=== PATIENT | male | born 1955 | race Caucasian/White ===

== ENCOUNTER → 2020-12-12 11:32 | Outpatient (BNVA) | payer MEDICARE, OTHER, SELFPAY | PROVIDERS: Family Provider Family Medicine; PCP Family Medicine; Visit Provider Orthopaedic Surgery | DX: Z01.812 Encounter for preprocedural laboratory examination (principal); Z20.822 Contact with and (suspected) exposure to COVID-19 | CPT/HCPCS: 87635 ==

== ENCOUNTER 2020-12-18 09:19 | Day surgery (SDC) | payer MEDICARE, OTHER, SELFPAY ==
[2020-12-17 13:52] VITALS: BMI 21.4
[2020-12-18] VITALS (9 sets, daily range): BP systolic 95–154; BP diastolic 69–85; PULSE 54–88; RESP 12–20; TEMP 36.1–36.9; O2SAT 96–100
[2020-12-18] MEDS: acetaminophen 500 mg Tablet 1000 MG PO (09:45)
[2020-12-18] MEDS: sodium chloride 0.9% 1,000 ML 30 ML IV (09:46)
[2020-12-18] MEDS: midazolam 1 mg/mL INJ 2 mL 2 MG IVP (10:09)
--- NOTE | 2020-12-18 10:14 | ANES.PREANE2 ---
Pre-Anesthetic Assessment Pre-Anesthetic Assessment: Height/Weight: Height 1.75 m Weight 65.771 kg Temp Pulse Resp BP Pulse Ox 98 F 54 L 16 95/73 96 12/18/20 09:35 12/18/20 09:35 12/18/20 09:35 12/18/20 09:35 12/18/20 09:35 Preop Diagnosis: Rotator cuff tear Left shoulder Proposed Procedure: Operation Date: 12/18/20 11:20 Proposed Procedures p Shoulder Arthroscopy 89715 M75.102(Left) - Bradly Lyons MD s Rotator Cuff Repair(Not Applicable) - Bradly Lyons MD Familial anesthetic complications: none Was Beta Patrizia taken within 24 hours: N/A Was Clonidine taken within 24 hours: N/A Last intake: Intake Last Liquid Date 12/17/20 Last Liquid Time 22:00 Last Solid Date 12/17/20 Last Solid Time 20:00 Social: Social History: No alcohol and No tobacco Exam: Pre-Anes Outpt Exam: alert, oriented x 3, clear to auscultation bilaterally and regular rate & rhythm Airway: Cervical ROM: WNL MP: 2 Dentition: Full Neuropsych: Neuropsych: Anxiety Anesthetic Plan: ASA status: 1 Anesthesia: General and Regional (specify below) Risk of > 500 ml blood loss (7ml/kg in children): No Meds/Allergies Current Medications: Current Medications Generic Name Dose Route Start Last Admin Trade Name Freq PRN Reason Stop Dose Admin Sodium Chloride 1,000 mls @ 30 ml s/hr 12/18/20 09:30 12/18/20 09:46 Sodium Chloride 0.9% IV 12/19/20 09:29 30 mls/hr .Q24H ONEYDA Administration PFSH Anesthesia PFSH: Social History (Updated 12/05/20 @ 09:14 by Beverly Rueda LPN) Smoking and tobacco status: current some day smoker Alcohol intake: never Data Anesthesia Cardiac Studies: No Data to Display
--- NOTE | 2020-12-18 10:14 | ANES.PROC ---
Anesthesia Procedures Procedure/Date: 12/18/20 Nerve Block ^: Nerve Block 1: Main Anesthesia: general anesthesia Time Out Performed: Yes Consent: requested by attending/covering physician, from patient, from other, patient agrees to proceed and emergency procedure Nerve block location: interscalene (L) Anesthesia monitors applied: pulse oximetry, EKG, BP cuff and oxygen Nerve block position: semi sitting Anesthetic Used: ropivicaine 0.5% and with decadron (4 mg) Amount of anesthesia used (mL): 20 Ultrasound used to: recognize landmarks, visualize and ID brachial plexus and visualize and ID interscalene groove Nerve Stimulator Used?: No Interscalene/Femoral BLK: 2 stimuplex 22 g needle used for position and inplane approach, visualize local anesthetic spread and no vascular puncture identified Injection: neg aspiration of heme Patient Tolerated Procedure: well and no complications Complications: none
--- NOTE | 2020-12-18 10:33 | W.PM.OPSUD ---
Surgery/Procedure H&P Update DATE OF PROCEDURE: December 18, 2020 DATE H&P PERFORMED: 12/05/20 PREOP DIAGNOSIS: Rotator cuff tear Left shoulder PLANNED PROCEDURE: Operation Date: 12/18/20 11:20 Proposed Procedures p Shoulder Arthroscopy 85042 M75.102(Left) - Bradly Lyons MD s Rotator Cuff Repair(Not Applicable) - Bradly Lyons MD
--- NOTE | 2020-12-18 12:49 | PM.OP ---
Operative Report Date of procedure: December 18, 2020 Pre-op Diagnosis: Rotator cuff tear Left shoulder Post-op diagnosis: same Post-op Findings: Same with impingement Procedure Done: Arthroscopic left rotator cuff repair, arthroscopic left subacromial decompression Pathology: none sent Surgeon: Bradly Lyons Anesthesia: General and Nerve Block (Interscalene block) Estimated blood loss (mL): 10 Findings: The patient is a large tear of his left rotator cuff that was crescentic with retraction of the supraspinatus and infraspinatus nearly to the level of the glenoid however the tendons were mobile and of good quality allowing for primary repair Condition: stable Disposition: PACU Procedure: The patient was given an interscalene block and taken to the operating room. He was given a general anesthesia and prepped and draped in the lateral position with his left upper extremity traction. He was given 2 g of Ancef and a timeout was performed. Initially a scope was entered into the glenohumeral joint with an anterior working portal. 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 The rotator cuff tear was identified. Arthroscopy equipment was then redirected to the subacromial space and a lateral working portal was opened. A Lucero [employer] Nephew Werewolf probe was used to remove bursal tissue and outlined the leading edge of the acromion. He had some spurring of the leading edge. 5 5 acromionizer was introduced and approximately 5 mm of anterior and inferior spurring removed to create vascularity to facilitate rotator cuff healing and make room for the repair. Attention was then focused on the rotator cuff. The tear itself seemed crescentic and very mobile. An incisor shaver was used to debride the footprint for the anterior cruciate ligament. Through a lateral stab wound a 4.5 mm Lucero and Nephew Helicoil anchor was placed in the posterior medial footprint. The Lucero [employer] Nephew FirstPass suture passer was used to shuttle 1 tape suture through the far posterior rotator cuff approximately 7 mm from the edge and a second approximately 5 mm anterior to the. 2 additional anchors were placed moving forward 1 and a central and one in an anterior fashion and the tapes passed in identical fashion. The sutures were secured with a sliding Salguero knot and half hitches bringing the medial cuff to media footprint. Next 1 tape from each anchor was passed through the lateral working portal. These were passed through a 5.5 mm Lucero [employer] Nephew Helicoil knotless anchor. The anchor was placed in a posterior lateral position and the sutures tightened. This was repeated with a second knotless anchor anteriorly. The lateral rotator cuff was drawn down to the lateral bone. The repair was probed and found to be stable. The shoulder was irrigated with saline. Portals were closed with 3-0 Prolene. Sterile dressings were applied. The patient was placed in a sling, extubated, and taken to recovery in stable condition.
[2020-12-18] MEDS: meperidine 50 mg/mL INJ 12.5 MG IVP (12:55)
--- NOTE | 2020-12-18 14:10 | ANE.PACU2 ---
Inpatient post-anesthesia follow up: Airway intact: Yes Vital signs: Temperature 98 F Pulse Rate 64 Respiratory Rate 16 Blood Pressure 134/85 Pulse Oximetry 98 Oxygen Delivery Me thod Room Air Oxygen Flow Rate 6 Fraction of Inspir ed Oxygen Hydration adequate: Yes Nausea and vomiting: No Pain level: 3 Mental status: Baseline
== END 2020-12-18 15:30 | disposition home or self-care (01) ==
PROVIDERS: PCP Family Medicine; Visit Provider Orthopaedic Surgery
PROC: (CPT 29805; principal; 2020-12-18 11:00)
PROC: (CPT 29826; 2020-12-18 11:00)
DX: M75.102 Unspecified rotator cuff tear or rupture of left shoulder, not specified as traumatic (principal); F41.9 Anxiety disorder, unspecified; F17.210 Nicotine dependence, cigarettes, uncomplicated
CPT/HCPCS: 29826; 29827; 64415; 76942; 96374; C1713; J0690; J1100; J2175; J2250; J2405; J2704; J2795; J3010; J3490; J7030

== ENCOUNTER → 2021-03-18 08:36 | Outpatient (BNVA) | payer MEDICARE, OTHER, SELFPAY | PROVIDERS: PCP Family Medicine; Visit Provider Orthopaedic Surgery | DX: S46.211D Strain of muscle, fascia and tendon of other parts of biceps, right arm, subsequent encounter (principal); X58.XXXD Exposure to other specified factors, subsequent encounter; M75.121 Complete rotator cuff tear or rupture of right shoulder, not specified as traumatic | CPT/HCPCS: 73030 ==

== ENCOUNTER 2021-11-03 12:59 | Outpatient (CLI) | payer MEDICARE, OTHER, SELFPAY ==
[2021-11-07 21:48] LABS: CMV DNA By PCR NOT DETECTED; CMV DNA, QN PCR NOT DETECTED Log IU/mL; SOURCE WHOLE BLOOD
== END 2021-11-03 13:00 | disposition home or self-care (01) ==
LOC: LAB 13:05
PROVIDERS: PCP Family Medicine; Visit Provider Internal Medicine Pulmonary Disease
DX: C82.38 Follicular lymphoma grade IIIa, lymph nodes of multiple sites (principal)
CPT/HCPCS: 87496

== ENCOUNTER 2021-11-23 12:17 | Outpatient (CLI) | payer MEDICARE, OTHER, SELFPAY | END 2021-11-23 12:18 | disposition home or self-care (01) | LOC: LAB 12:31 | PROVIDERS: PCP Family Medicine; Visit Provider Family Medicine | DX: C82.38 Follicular lymphoma grade IIIa, lymph nodes of multiple sites (principal) | CPT/HCPCS: 36415 ==

== ENCOUNTER 2021-12-07 11:21 | Outpatient (CLI) | payer MEDICARE, OTHER, SELFPAY | END 2021-12-07 11:22 | disposition home or self-care (01) | LOC: LAB 11:27 | PROVIDERS: PCP Family Medicine; Visit Provider Internal Medicine Medical Oncology | DX: C82.38 Follicular lymphoma grade IIIa, lymph nodes of multiple sites (principal) | CPT/HCPCS: 36415 ==

== ENCOUNTER → 2022-02-23 10:48 | Outpatient (BNVA) | payer MEDICARE, OTHER, SELFPAY | PROVIDERS: PCP Family Medicine; Visit Provider Orthopaedic Surgery | DX: Z98.890 Other specified postprocedural states (principal) | CPT/HCPCS: 99024; 99212 ==

== ENCOUNTER 2022-03-24 11:06 | Outpatient (CLI) | payer MEDICARE, OTHER, SELFPAY ==
[2022-03-24 12:33] LABS: INR 0.96 (0.8-1.2)
[2022-03-24 12:34] LABS: Partial Thromboplastin Time 27.8 SECONDS (23.9-36.7)
== END 2022-03-24 11:07 | disposition home or self-care (01) ==
LOC: LAB 11:18
PROVIDERS: PCP Family Medicine; Visit Provider Internal Medicine Medical Oncology
DX: C82.38 Follicular lymphoma grade IIIa, lymph nodes of multiple sites (principal); R79.1 Abnormal coagulation profile
CPT/HCPCS: 36415; 85610; 85730

== ENCOUNTER 2022-06-16 14:26 | Oncology outpatient (recurring) (ONCR) | payer MEDICARE, OTHER, SELFPAY ==
[2022-06-16 15:13] LABS: Basophils % 0.7 %; Eosinophils # 0.3 10^3/uL (0.0-0.8); Eosinophils % 4.8 %; Hematocrit 39.5 % (42.0-52.0); Hemoglobin 13.6 g/dL (11.7-16.6); Lymphocytes # 1.4 10^3/uL (0.8-4.8); Lymphocytes % 25.2 %; Mean Corpuscular HGB Conc 34.4 g/dL (30.0-36.0); Mean Corpuscular Hemoglobin 31.8 pg (28.0-34.0); Mean Corpuscular Volume 92.3 fl (80-94); Mean Platelet Volume 9.2 fL (7.4-10.4); Monocytes # 0.4 10^3/uL (0.2-0.9); Monocytes % 6.7 %; Neutrophils % 62.2 %; Nucleated Red Blood Cells % 0 %; Platelet Count 148 10^3/cmm (130-400); Red Blood Count 4.28 10^6/uL (4.1-5.3); Red Cell Distribution Width 15.2 % (12.1-15.1); White Blood Count 5.6 10^3/uL (4.0-10.0)
[2022-06-16 15:56] LABS: Alanine Aminotransferase 11 U/L (0-41); Albumin Level 4.1 g/dL (3.5-5.2); Alkaline Phosphatase 96 U/L (40-130); Anion Gap 14.3 (5-19); Aspartate Amino Transferase 17 U/L (0-40); Blood Urea Nitrogen 14 mg/dL (8-23); Calcium 9.2 mg/dL (8.5-10.5); Carbon Dioxide 26 mmol/L (22-29); Chloride 103 mmol/L (98-107); Glomerular Filtration Rate 96.4 mL/min (90-130); Glucose 124 mg/dL (65-115); Osmolality Calculated 290 mOsm/kg (285-295); Potassium 4.3 mmol/L (3.5-5.1); Sodium 139 mmol/L (136-145); Total Bilirubin 0.3 mg/dL (0.15-1.2); Total Protein 6.1 g/dL (6.6-8.7)
[2022-06-16 17:48] LABS: Lactate Dehydrogenase 211 U/L (135-225)
== END 2022-06-23 23:59 | disposition home or self-care (01) ==
PROVIDERS: Internal Medicine Medical Oncology; PCP Family Medicine; Visit Provider Internal Medicine Medical Oncology
DX: C82.38 Follicular lymphoma grade IIIa, lymph nodes of multiple sites (principal)
CPT/HCPCS: 36592; 80053; 83615; 85025

== ENCOUNTER 2022-08-17 11:15 | Oncology outpatient (recurring) (ONCR) | payer MEDICARE, OTHER, SELFPAY | END 2022-08-24 23:59 | disposition home or self-care (01) | PROVIDERS: PCP Family Medicine; Visit Provider Internal Medicine Medical Oncology | DX: C82.38 Follicular lymphoma grade IIIa, lymph nodes of multiple sites (principal) | CPT/HCPCS: 36592; 96375; J1642 ==

== ENCOUNTER 2022-09-15 13:00 | Oncology outpatient (recurring) (ONCR) | payer MEDICARE, OTHER, SELFPAY ==
[2022-08-26 11:30] VITALS: BP 124/78; PULSE 72; RESP 18; TEMP 36.3; O2SAT 98
[2022-08-26 12:01] LABS: Basophils % 0.3 %; Eosinophils # 0.3 10^3/uL (0.0-0.8); Eosinophils % 4.2 %; Hematocrit 38.4 % (42.0-52.0); Hemoglobin 12.9 g/dL (11.7-16.6); Lymphocytes # 0.9 10^3/uL (0.8-4.8); Lymphocytes % 15.4 %; Mean Corpuscular HGB Conc 33.6 g/dL (30.0-36.0); Mean Corpuscular Hemoglobin 30.1 pg (28.0-34.0); Mean Corpuscular Volume 89.5 fl (80-94); Mean Platelet Volume 9.3 fL (7.4-10.4); Monocytes # 0.6 10^3/uL (0.2-0.9); Monocytes % 9.7 %; Neutrophils # 4.12 10^3/uL (1.8-7.7); Neutrophils % 70.1 %; Nucleated Red Blood Cells % 0 %; Platelet Count 150 10^3/cmm (130-400); Red Blood Count 4.29 10^6/uL (4.1-5.3); Red Cell Distribution Width 12.9 % (12.1-15.1); White Blood Count 5.9 10^3/uL (4.0-10.0)
[2022-08-26 12:25] LABS: Alanine Aminotransferase 9 U/L (0-41); Albumin Level 3.8 g/dL (3.5-5.2); Alkaline Phosphatase 100 U/L (40-130); Anion Gap 13.1 (5-19); Aspartate Amino Transferase 12 U/L (0-40); Blood Urea Nitrogen 15 mg/dL (8-23); Calcium 9.2 mg/dL (8.5-10.5); Carbon Dioxide 27 mmol/L (22-29); Chloride 101 mmol/L (98-107); Globulin 2.5 g/dL (1.3-4.6); Glomerular Filtration Rate 112.1 mL/min (90-130); Glucose 102 mg/dL (65-115); Lactate Dehydrogenase 167 U/L (135-225); Osmolality Calculated 285 mOsm/kg (285-295); Potassium 4.1 mmol/L (3.5-5.1); Sodium 137 mmol/L (136-145); Total Bilirubin 0.2 mg/dL (0.15-1.2); Total Protein 6.3 g/dL (6.6-8.7)
== END 2022-09-21 23:59 | disposition home or self-care (01) ==
PROVIDERS: PCP Family Medicine; Visit Provider Internal Medicine Medical Oncology
DX: C82.38 Follicular lymphoma grade IIIa, lymph nodes of multiple sites (principal)
CPT/HCPCS: 36592; 80053; 83615; 85025; 96375

== ENCOUNTER 2022-10-20 11:10 | Oncology outpatient (recurring) (ONCR) | payer MEDICARE, OTHER, SELFPAY ==
[2022-10-15 11:54] VITALS: BP 107/72; PULSE 65; RESP 18; TEMP 36.3; O2SAT 98
[2022-10-15 12:00] LABS: Basophils # 0.1 10^3/uL (0.0-0.1); Basophils % 0.8 %; Eosinophils # 0.2 10^3/uL (0.0-0.8); Eosinophils % 2.5 %; Hematocrit 40.3 % (42.0-52.0); Lymphocytes # 0.6 10^3/uL (0.8-4.8); Lymphocytes % 10.2 %; Mean Corpuscular HGB Conc 32.3 g/dL (30.0-36.0); Mean Corpuscular Hemoglobin 27.6 pg (28.0-34.0); Mean Corpuscular Volume 85.6 fl (80-94); Mean Platelet Volume 10.9 fL (7.4-10.4); Monocytes # 0.5 10^3/uL (0.2-0.9); Monocytes % 8.9 %; Neutrophils # 4.36 10^3/uL (1.8-7.7); Neutrophils % 73.1 %; Nucleated Red Blood Cells % 0 %; Platelet Count 104 10^3/cmm (130-400); Red Blood Count 4.71 10^6/uL (4.1-5.3); Red Cell Distribution Width 13.4 % (12.1-15.1)
[2022-10-15 12:14] LABS: Alanine Aminotransferase 14 U/L (0-41); Albumin Level 3.8 g/dL (3.5-5.2); Alkaline Phosphatase 111 U/L (40-130); Anion Gap 17.1 (5-19); Aspartate Amino Transferase 18 U/L (0-40); Blood Urea Nitrogen 14 mg/dL (8-23); Calcium 8.5 mg/dL (8.5-10.5); Carbon Dioxide 24 mmol/L (22-29); Chloride 100 mmol/L (98-107); Globulin 2.4 g/dL (1.3-4.6); Glomerular Filtration Rate 83.9 mL/min (90-130); Glucose 113 mg/dL (65-115); Lactate Dehydrogenase 198 U/L (135-225); Osmolality Calculated 285 mOsm/kg (285-295); Potassium 4.1 mmol/L (3.5-5.1); Sodium 137 mmol/L (136-145); Total Bilirubin 0.2 mg/dL (0.15-1.2); Total Protein 6.2 g/dL (6.6-8.7)
[2022-10-20 11:58] LABS: Basophils % 1.1 %; Eosinophils # 0.1 10^3/uL (0.0-0.8); Eosinophils % 4.4 %; Hematocrit 38.6 % (42.0-52.0); Hemoglobin 12.5 g/dL (11.7-16.6); Lymphocytes # 0.5 10^3/uL (0.8-4.8); Lymphocytes % 17.5 %; Mean Corpuscular HGB Conc 32.4 g/dL (30.0-36.0); Mean Corpuscular Hemoglobin 27.5 pg (28.0-34.0); Mean Platelet Volume 10.9 fL (7.4-10.4); Monocytes # 0.3 10^3/uL (0.2-0.9); Monocytes % 9.1 %; Neutrophils # 1.83 10^3/uL (1.8-7.7); Neutrophils % 66.8 %; Nucleated Red Blood Cells % 0 %; Platelet Count 95 10^3/cmm (130-400); Red Blood Count 4.54 10^6/uL (4.1-5.3); Red Cell Distribution Width 13.4 % (12.1-15.1); White Blood Count 2.7 10^3/uL (4.0-10.0)
[2022-10-20 12:16] LABS: Alanine Aminotransferase 17 U/L (0-41); Albumin Level 3.7 g/dL (3.5-5.2); Alkaline Phosphatase 104 U/L (40-130); Anion Gap 13.1 (5-19); Aspartate Amino Transferase 15 U/L (0-40); Blood Urea Nitrogen 14 mg/dL (8-23); Carbon Dioxide 24 mmol/L (22-29); Chloride 105 mmol/L (98-107); Globulin 2.2 g/dL (1.3-4.6); Glomerular Filtration Rate 83.9 mL/min (90-130); Glucose 98 mg/dL (65-115); Lactate Dehydrogenase 157 U/L (135-225); Osmolality Calculated 286 mOsm/kg (285-295); Potassium 4.1 mmol/L (3.5-5.1); Sodium 138 mmol/L (136-145); Total Bilirubin 0.2 mg/dL (0.15-1.2); Total Protein 5.9 g/dL (6.6-8.7)
--- NOTE | 2022-10-20 12:21 | PC.NURSE ---
Central line dressing change completed via sterile technique. Pt tolerated well. No redness or irritation noted. - JW
[2022-10-20 12:23] LABS: Slide Review Slide Review Perform
== END 2022-10-22 23:59 | disposition home or self-care (01) ==
PROVIDERS: Nurse Practitioner Acute Care; PCP Family Medicine; Visit Provider Internal Medicine Medical Oncology
DX: C82.38 Follicular lymphoma grade IIIa, lymph nodes of multiple sites (principal)
CPT/HCPCS: 36592; 80053; 83615; 85025; J1642

== ENCOUNTER 2022-11-12 10:03 | Oncology outpatient (recurring) (ONCR) | payer MEDICARE, OTHER, SELFPAY ==
[2022-11-12 11:10] LABS: Basophils # 0.1 10^3/uL (0.0-0.1); Basophils % 2.8 %; Eosinophils # 0.5 10^3/uL (0.0-0.8); Hematocrit 34.7 % (42.0-52.0); Hemoglobin 11.6 g/dL (11.7-16.6); Lymphocytes # 0.9 10^3/uL (0.8-4.8); Mean Corpuscular HGB Conc 33.4 g/dL (30.0-36.0); Mean Corpuscular Volume 83.6 fl (80-94); Mean Platelet Volume 10.4 fL (7.4-10.4); Monocytes # 0.3 10^3/uL (0.2-0.9); Monocytes % 19.2 %; Nucleated Red Blood Cells % 0 %; Platelet Count 94 10^3/cmm (130-400); Red Blood Count 4.15 10^6/uL (4.1-5.3); Red Cell Distribution Width 16.3 % (12.1-15.1); White Blood Count 1.8 10^3/uL (4.0-10.0)
[2022-11-12 11:20] LABS: Fibrinogen 192 mg/dL (174-498)
[2022-11-12 11:28] LABS: Alanine Aminotransferase 10 U/L (0-41); Albumin Level 3.8 g/dL (3.5-5.2); Alkaline Phosphatase 68 U/L (40-130); Anion Gap 13.2 (5-19); Aspartate Amino Transferase 12 U/L (0-40); Blood Urea Nitrogen 13 mg/dL (8-23); Calcium 8.5 mg/dL (8.5-10.5); Carbon Dioxide 24 mmol/L (22-29); Chloride 105 mmol/L (98-107); Ferritin 101 ng/mL (30-400); Globulin 1.7 g/dL (1.3-4.6); Glomerular Filtration Rate 112.1 mL/min (90-130); Glucose 86 mg/dL (65-115); Osmolality Calculated 285 mOsm/kg (285-295); Potassium 4.2 mmol/L (3.5-5.1); Sodium 138 mmol/L (136-145); Total Bilirubin 0.3 mg/dL (0.15-1.2); Total Protein 5.5 g/dL (6.6-8.7)
== END 2022-11-21 23:59 | disposition home or self-care (01) ==
LOC: ONCMED 10:04
PROVIDERS: Internal Medicine Medical Oncology; Visit Provider Internal Medicine Medical Oncology
DX: C83.38 Diffuse large B-cell lymphoma, lymph nodes of multiple sites (principal); Z79.899 Other long term (current) drug therapy
CPT/HCPCS: 36592; 80053; 82728; 85025; 85384; 86140

== ENCOUNTER 2023-05-30 10:18 | Oncology outpatient (recurring) (ONCR) | payer MEDICARE, OTHER, SELFPAY ==
[2023-05-30 10:35] VITALS: BP 101/61; PULSE 87; RESP 16; TEMP 37.1; O2SAT 97
[2023-05-30 11:14] LABS: Basophils % 0.8 %; Eosinophils # 0.4 10^3/uL (0.0-0.8); Eosinophils % 10.2 %; Hematocrit 31.7 % (37-53); Lymphocytes # 0.5 10^3/uL (0.8-4.8); Lymphocytes % 13.1 %; Mean Corpuscular HGB Conc 33.8 g/dL (30-55); Mean Corpuscular Hemoglobin 31.5 pg (27-33); Mean Corpuscular Volume 93.2 fl (82-101); Mean Platelet Volume 12.5 fL (7.4-10.4); Monocytes # 0.6 10^3/uL (0.2-0.9); Monocytes % 16.3 %; Neutrophils # 2.21 10^3/uL (1.8-7.7); Nucleated Red Blood Cells % 0 %; Platelet Count 100 10^3/cmm (157-399); White Blood Count 3.81 10^3/uL (3.29-11.43)
[2023-05-30 11:33] LABS: Alanine Aminotransferase 10 U/L (0-41); Albumin Level 3.9 g/dL (3.5-5.2); Alkaline Phosphatase 110 U/L (40-130); Anion Gap 14.2 (5-19); Aspartate Amino Transferase 12 U/L (0-40); Blood Urea Nitrogen 12 mg/dL (8-23); Carbon Dioxide 25 mmol/L (22-29); Chloride 101 mmol/L (98-107); Glucose 93 mg/dL (65-115); Osmolality Calculated 281 mOsm/kg (285-295); Potassium 4.2 mmol/L (3.5-5.1); Sodium 136 mmol/L (136-145); Total Bilirubin 0.2 mg/dL (0.15-1.2); Total Protein 5.9 g/dL (6.6-8.7)
== END 2023-06-23 23:59 | disposition home or self-care (01) ==
PROVIDERS: Internal Medicine Medical Oncology; Visit Provider Internal Medicine Medical Oncology
DX: C82.38 Follicular lymphoma grade IIIa, lymph nodes of multiple sites (principal); Z79.899 Other long term (current) drug therapy
CPT/HCPCS: 80053; 85025